=== PATIENT | female | born 1965 | race Caucasian/White ===

== ENCOUNTER → 2020-10-18 | Outpatient (CLI) | payer BC | LOC: KOH-I 10:43 | DX: Z09 Encounter for follow-up examination after completed treatment for conditions other than malignant neoplasm (principal); Z86.16 Personal history of COVID-19 | CPT/HCPCS: 71046 ==

== ENCOUNTER → 2020-10-28 | Outpatient (CLI) | payer BC ==
[2020-10-28 11:35] LABS: HEMOGLOBIN 15.9 gm/dl (12.3-15.3); RED BLOOD COUNT 5.09 M/UL (4.00-5.10); WHITE BLOOD COUNT 9.6 K/UL (4.5-11.0)
[2020-10-29 10:14] LABS: VITAMIN D, 25-HYDROXY 28.1 ng/mL (30.0-100.0)
[2020-10-29 11:14] LABS: THYROXINE (T4) 10.3 ug/dL (4.5-12.0)
== END ==
LOC: LAB 10:38
PROVIDERS: Nurse Practitioner Family
DX: M54.2 Cervicalgia (principal); R20.0 Anesthesia of skin; R20.2 Paresthesia of skin; R53.83 Other fatigue; M50.322 Other cervical disc degeneration at C5-C6 level; Z86.16 Personal history of COVID-19
CPT/HCPCS: 36415; 72050; 80053; 80061; 83036; 84436; 84443; 84480; 85025

== ENCOUNTER → 2021-02-18 | Outpatient (CLI) | payer BC, OTHER ==
[2021-02-18 12:03] LABS: HEMOGLOBIN 15.7 gm/dl (12.3-15.3); RED BLOOD COUNT 4.98 M/UL (4.00-5.10); WHITE BLOOD COUNT 7.9 K/UL (4.5-11.0)
[2021-02-18 12:33] LABS: BUN/CREATININE RATIO 21 (0-10)
[2021-02-19 09:14] LABS: VITAMIN D, 25-HYDROXY 30.9 ng/mL (30.0-100.0)
[2021-02-19 10:14] LABS: THYROXINE (T4) 8.7 ug/dL (4.5-12.0)
== END ==
LOC: LAB 10:15
PROVIDERS: Nurse Practitioner Family
DX: E78.5 Hyperlipidemia, unspecified (principal); R53.83 Other fatigue
CPT/HCPCS: 36415; 80053; 80061; 81001; 84436; 84443; 84480; 85025

== ENCOUNTER → 2021-02-19 | Outpatient (CLI) | payer BC, OTHER | LOC: EMI 14:06 | DX: R53.1 Weakness (principal); H70.92 Unspecified mastoiditis, left ear; Z20.828 Contact with and (suspected) exposure to other viral communicable diseases; R20.9 Unspecified disturbances of skin sensation | CPT/HCPCS: 70551 ==

== ENCOUNTER → 2021-04-28 | Outpatient (CLI) | payer BC | LOC: EXRD 13:29 | DX: I65.23 Occlusion and stenosis of bilateral carotid arteries (principal) | CPT/HCPCS: 93880 ==

== ENCOUNTER → 2021-04-30 | Outpatient (CLI) | payer BC | LOC: MAMO 08:30 | DX: Z12.31 Encounter for screening mammogram for malignant neoplasm of breast (principal); Z78.0 Asymptomatic menopausal state; M85.89 Other specified disorders of bone density and structure, multiple sites | CPT/HCPCS: 77063; 77067; 77080 ==

== ENCOUNTER → 2021-06-03 | Outpatient (CLI) | payer BC | LOC: MAMO 13:22 | DX: N63.25 Unspecified lump in the left breast, overlapping quadrants (principal) | CPT/HCPCS: 76641-LT; 77065; G0279 ==

== ENCOUNTER 2021-07-29 13:05 | Emergency (ER) | payer OTHER ==
[2021-07-29] MEDS ORDERED: HYDROCODON-ACE1 EAC4 PO (14:30)
[2021-07-29] MEDS ORDERED: BACTROBAN OINT22 GM TP (14:32)
== END 2021-07-29 14:46 | disposition home or self-care (01) ==
LOC: ER1 13:05
DX: S52.125A Nondisplaced fracture of head of left radius, initial encounter for closed fracture (principal); F17.200 Nicotine dependence, unspecified, uncomplicated; S50.12XA Contusion of left forearm, initial encounter; Z23 Encounter for immunization; Z90.710 Acquired absence of both cervix and uterus
CPT/HCPCS: 73060; 73080; 73090; 90471; 90715; 99283